=== PATIENT | female | born 1975 | race Caucasian/White ===

== ENCOUNTER 2017-02-12 15:25 | Emergency (ER) | payer OTHER ==
[~2017-02-12] VITALS: Ht 170.2 cm; Wt 99.8 kg
[~2017-02-12 15:25] MED LIST: FLEXERIL10 MG PO; MOBIC 15MG15 MG PO; TRAMADOL50 MG PO
[2017-02-12 15:32] VITALS: BP 125/84
== END 2017-02-12 16:00 | disposition admitted as inpatient to this hospital (09) ==
LOC: ERH 15:25
DX: R10.30 Lower abdominal pain, unspecified (principal); Z53.21 Procedure and treatment not carried out due to patient leaving prior to being seen by health care provider
CPT/HCPCS: 81003; 99281